=== PATIENT | female | born 1995 | race Caucasian/White ===

== ENCOUNTER 2023-10-25 18:11 | Inpatient (IN) | payer OTHER, SELFPAY ==
[2023-10-25 18:27] VITALS: BP 128/79; BMI 29.3
[2023-10-25 21:56] LABS: % Basophils 0.2 % (0-2); % Eosinophils 0.2 % (0-6); % Immature Granulocytes 0.4 % (0-0.5); % Lymphocytes 21.1 % (20.5-51.1); % Monocytes 4.6 % (1.7-9.3); % Neutrophils 73.5 % (42.2-75.2); Absolute Immature Granulocytes 0.1 10^3/uL (0-0.05); Absolute Lymphocytes 2.8 10^3/uL (1.2-3.4); Absolute Monocytes 0.6 10^3/uL (0.1-0.6); Absolute Neutrophils 9.6 10^3/uL (1.4-6.5); Hematocrit 36.1 % (37.0-47.0); Hemoglobin 13.1 g/dL (12.0-16.0); Mean Corp Hgb Conc. 36.3 g/dL (33.0-37.0); Mean Corpuscular Hgb 32.3 pg (27.0-31.0); Mean Corpuscular Volume 88.9 fL (81.0-99.0); Mean Platelet Volume 11.9 fL (7.4-10.4); Nucleated Red Blood Cells % 0 %; Platelet Count 234 10^3/uL (130-400); Red Blood Cell Count 4.06 10^6/uL (4.20-5.40); Red Cell Dist. Width 12.5 % (11.5-14.5); White Blood Cell Count 13.1 10^3/uL (4.8-10.8)
[2023-10-25] MEDS: LR 1000 IV (22:16)
[2023-10-25] MEDS: PENICILLIN 110 UNITS IV (22:17)
[2023-10-25] MEDS: PITOCIN 30 UNITS/NSS 500 ML IV (22:20)
[2023-10-26] MEDS: PENICILLIN 55 UNITS IV ×3 (02:29→11:07)
[2023-10-26] MEDS: LR 1000 IV ×3 (02:29→13:01)
[2023-10-26] MEDS: FENTANYL/BUPIVACAINE 100 EPIDURAL ×2 (04:58→12:45)
[2023-10-26] MEDS: SUBLIMAZE 100 MCG EPIDURAL (04:58)
[2023-10-26 14:08] LABS: Cord ABG Comment CORD BLOOD
[2023-10-26 14:13] LABS: B.E. Cord ABG -7.3 mMOL/L; HCO3 Cord ABG 18.1 mmol/L; PCO2 Cord ABG 36 mmHg; PO2 Cord ABG 36 mmHg; pH Cord ABG 7.31
[2023-10-26 14:16] LABS: B.E. Cord ABG -7.5 mMOL/L; O2 Saturation % Cord ABG 42.2 %; PCO2 Cord ABG 59 mmHg; PO2 Cord ABG 22 mmHg; pH Cord ABG 7.18
[2023-10-27] MEDS: MOTRIN 600 MG PO ×2 (04:43→23:36)
[2023-10-27 05:19] LABS: Hematocrit 33.5 % (37.0-47.0); Hemoglobin 11.7 g/dL (12.0-16.0)
[2023-10-27] MEDS: SENOKOT-S 1 TABLET PO (08:51)
[2023-10-27] MEDS: PRENATAL PLUS 1 TABLET PO (08:51)
[2023-10-28] MEDS: PRENATAL PLUS 1 TABLET PO (08:03)
[2023-10-28 16:24] LABS: Syphilis/T. pallidum Ab Reflex Negative (Negative)
== END 2023-10-28 13:22 | disposition home or self-care (01) | DRG 807 ==
LOC: LDRP 18:11
PROVIDERS: ADMITTING PHYSICIAN Obstetrics & Gynecology
PROC: 10D07Z6 Extraction of Products of Conception, Vacuum, Via Natural or Artificial Opening (ICD-10-PCS; 2023-10-26)
PROC: 6A550ZT Pheresis of Cord Blood Stem Cells, Single (ICD-10-PCS; 2023-10-26)
DX: O42.02 Full-term premature rupture of membranes, onset of labor within 24 hours of rupture (principal); Z37.0 Single live birth; Z3A.40 40 weeks gestation of pregnancy; O48.0 Post-term pregnancy; O99.824 Streptococcus B carrier state complicating childbirth; O77.0 Labor and delivery complicated by meconium in amniotic fluid; I95.9 Hypotension, unspecified; O76 Abnormality in fetal heart rate and rhythm complicating labor and delivery; O69.82X0 Labor and delivery complicated by other cord entanglement, without compression, not applicable or unspecified
CPT/HCPCS: 88307; 82803; 85014; 85018; 85025; 86780; 86850; 86900; 86901